=== PATIENT | female | born 1975 | race American Indian/Alaskan Native ===

== ENCOUNTER 2020-09-02 12:14 | Emergency (ER) | payer MEDICARE ==
[2020-09-02 13:54] VITALS: BP 142/85
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
== END 2020-09-02 19:00 | disposition home or self-care (01) ==
LOC: ED 12:14
DX: S00.03XA Contusion of scalp, initial encounter (principal); R51.9 Headache, unspecified; I10 Essential (primary) hypertension; J45.909 Unspecified asthma, uncomplicated; Z79.899 Other long term (current) drug therapy; V49.49XA Driver injured in collision with other motor vehicles in traffic accident, initial encounter; W22.10XA Striking against or struck by unspecified automobile airbag, initial encounter; Y93.89 Activity, other specified; Y92.410 Unspecified street and highway as the place of occurrence of the external cause; Y99.8 Other external cause status
CPT/HCPCS: 70450